=== PATIENT | male | born 1930 | race Caucasian/White ===

== ENCOUNTER 2018-09-05 16:30 | Observation (INO) | payer MEDICARE ==
[2018-09-05 17:15] LABS: ABSOLUTE NEUTROPHIL COUNT 12.77; HEMATOCRIT 43.2 % (42.0-52.0); HEMOGLOBIN 13.9 gm/dl (14.0-18.0); MEAN CELL VOLUME 93.7 fl (81-97); MEAN CORPUSCULAR HGB CONC 32.2 g/dl (32-36); MEAN PLATELET VOLUME 11.5 fl (7.4-10.4); PLATELET COUNT 190 K/uL (130-400); RED BLOOD COUNT 4.61 M/uL (4.40-5.70); RED CELL DISTRIBUTION WIDTH 13.1 % (11.5-14.5); URINE APPEARANCE CLEAR; URINE BILIRUBIN NEGATIVE (NEGATIVE); URINE BLOOD MODERATE (NEGATIVE); URINE COLOR YELLOW; URINE GLUCOSE (UA) NEGATIVE (NEGATIVE); URINE KETONE TRACE (NEGATIVE); URINE LEUKOCYTE ESTERASE SMALL (NEGATIVE); URINE NITRITE POSITIVE (NEGATIVE); WHITE BLOOD COUNT W/O DIFF 15.3 K/uL (4.2-12.2)
[2018-09-05 17:27] LABS: MEAN CORPUSCULAR HEMOGLOBIN 30.1 pg (27-33)
[2018-09-05 17:30] LABS: ALB/GLOB RATIO 1.6 (1.1-1.8); ALBUMIN 4.1 g/dL (4.0-5.0); ALKALINE PHOSPHATASE 109 U/L (40-129); ALT/SGPT 18 U/L (<41); AST/SGOT 19 U/L (10.0-50.0); BLOOD UREA NITROGEN 15 mg/dL (8-23); CREATININE 0.9 mg/dL (0.7-1.2); EST GLOMERULAR FILTRATION RATE > 60 mL/min; GLUCOSE,RANDOM 161 mg/dL (74-109); TOTAL PROTEIN 6.6 g/dL (6.6-8.7)
[2018-09-05 17:41] LABS: URINE BACTERIA 3+; URINE EPITHELIAL CELLS 0 - 2 (FEW); URINE RBC 0 - 2 (NONE SEEN); URINE WBC >50 (0-2/hpf)
[2018-09-05] MEDS ORDERED: CIPROFLOXACIN LACTATE/D5W 400 MG/200 ML BAG IVPB ONE (17:44)
--- NOTE | 2018-09-05 18:25 | Emergency Department Record ---
History of Present Illness - General Chief complaint: Weakness Stated complaint: CANT URINATE,LOSS OF BALANCE Time Seen by Provider: 09/05/18 16:51 Source: Patient Mode of Arrival: Wheelchair Limitations: No limitations - History of Present Illness Initial comments: pt has been exceedingly weak today and incontinent. he had the chills Complaint: Generalized weakness Onset/Timin -: Hour(s) Associated Symptoms: Denies other symptoms, Fever/chills - [place] Coma Scale Eye Response: (4) Open spontaneously Motor Response: (5) Localizes to pain Verbal Response: (5) Oriented [place] Total: 14 - Related Data Home Medications Medication Instructions Recorded Confirmed Last Taken Dabigatran Etexilate Mesylate 75 mg PO BID 09/05/18 09/05/18 09/05/18 [Pradaxa] Digoxin [Digox] 125 mcg PO DAILY 09/05/18 09/05/18 09/05/18 Oxybutynin Chloride [Ditropan] 5 mg PO QHS 09/05/18 09/05/18 09/05/18 Allergies Allergy/AdvReac Type Severity Reaction Status Date / Time No Known Drug Allergies Allergy Verified 09/05/18 16:46 Travel Screening - Travel/Exposure Within Last 30 Days Have you traveled within the last 30 days?: No - Travel/Exposure Within Last Year Have you traveled outside the [place] in the last year?: No - Additonal Travel Details Have you been exposed to anyone with a communicable illness?: No - Travel Symptoms Symptom Screening: None Review of Systems Reviewed: No additional complaints except as noted below Constitutional: Reports: As per HPI, Chills, Weakness. Denies: Fever, Malaise, Night sweats, Weight change Eyes: Reports: As per HPI. Denies: Eye discharge, Eye pain, Photophobia, Vision change ENT: Reports: As per HPI. Denies: Congestion, Dental pain, Ear pain, Epistaxis, Hearing loss, Throat pain Respiratory: Reports: As per HPI. Denies: Cough, Dyspnea, Hemoptysis, Stridor, Wheezes Cardiovascular: Reports: As per HPI. Denies: Arrhythmia, Chest pain, Dyspnea on exertion, Edema, Murmurs, Orthopnea, Palpitations, Paroxysmal nocturnal dyspnea, Rheumatic Fever, Syncope Endocrine: Reports: As per HPI. Denies: Fatigue, Heat or cold intolerance, Polydipsia, Polyuria Gastrointestinal: Reports: As per HPI. Denies: Abdominal pain, Constipation, Diarrhea, Hematemesis, Hematochezia, Melena, Nausea, Vomiting Genitourinary: Reports: As per HPI, Frequency, Incontinence. Denies: Dysuria, Hematuria, Retention, Testicular pain, Testicular mass, Urgency Musculoskeletal: Reports: As per HPI. Denies: Arthralgia, Back pain, Gout, Joint swelling, Myalgia, Neck pain Skin: Reports: As per HPI. Denies: Bruising, Change in color, Change in hair /nails, Lesions, Pruritus, Rash Neurological: Reports: As per HPI. Denies: Abnormal gait, Confusion, Headache, Numbness, Paresthesias, Seizure, Tingling, Tremors, Vertigo, Weakness Psychiatric: Reports: As per HPI. Denies: Anxiety, Auditory hallucinations, Depression, Homicidal thoughts, Suicidal thoughts, Visual hallucinations Hematological/Lymphatic: Reports: As per HPI. Denies: Anemia, Blood Clots, Easy bleeding, Easy bruising, Swollen glands Past Medical History - SOCIAL HISTORY Smoking Status: Never smoker Alcohol Use: None Drug Use: None - RESPIRATORY Hx Respiratory Disorders: No - CARDIOVASCULAR Hx Cardio Disorders: Yes Hx Irregular Heartbeat: Yes - NEURO Hx Neuro Disorders: No - GI Hx GI Disorders: No - Hx Genitourinary Disorders: Yes Hx Prostate Problems: Yes - ENDOCRINE Hx Endocrine Disorders: No - MUSCULOSKELETAL Hx Musculoskeletal Disorders: No - PSYCH Hx Psych Problems: No - HEMATOLOGY/ONCOLOGY Hx Hematology/Oncology Disorders: No Family Medical History Any Significant Family History?: No Physical Exam - General General Appearance: Alert, Oriented x3, Cooperative, Mild distress - Head Head exam: Normal inspection - Eye Eye exam: Normal appearance, PERRL, EOMI Pupils: Normal accommodation - ENT ENT exam: Normal exam, Mucous membranes moist, Normal external ear exam, Normal orophraynx Ear exam: Normal external inspection. negative: External canal tenderness Nasal Exam: Normal inspection. negative: Discharge, Sinus tenderness Mouth exam: Normal external inspection, Tongue normal Teeth exam: Normal inspection. negative: Dental caries Throat exam: Normal inspection. negative: Tonsillar erythema, Tonsillar exudate - Neck Neck exam: Normal inspection, Full ROM. negative: Tenderness - Respiratory Respiratory exam: Normal lung sounds bilaterally. negative: Respiratory distress - Cardiovascular Cardiovascular Exam: Regular rate, Normal rhythm, Normal heart sounds - GI/Abdominal GI/Abdominal exam: Soft, Normal bowel sounds. negative: Tenderness - Rectal Rectal exam: Deferred - exam: Deferred - Extremities Extremities exam: Normal inspection, Full ROM, Normal capillary refill. negative: Tenderness - Back Back exam: Reports: Normal inspection, Full ROM. Denies: Muscle spasm, Rash noted, Tenderness - Neurological Neurological exam: Alert, CN II-XII intact, Normal gait, Oriented X3 - Psychiatric Psychiatric exam: Normal affect, Normal mood - Skin Skin exam: Dry, Intact, Normal color, Warm Course Vital Signs 09/05/18 09/05/18 16:33 17:52 Temperature 98.9 F Pulse Rate 99 H Pulse Rate [ 100 H Pulse Ox Probe] Respiratory 18 16 Rate Blood Pressure 118/82 Blood Pressure 106/69 [Right Arm] Pulse Ox 95 95 Medical Decision Making - Lab Data Result diagrams: 09/05/18 16:37 09/05/18 16:37 Lab Results 09/05/18 09/05/18 09/05/18 Range/Units 16:37 16:37 16:37 WBC 15.3 H (4.2-12.2) K/uL RBC 4.61 (4.40-5.70) M/uL Hgb 13.9 L (14.0-18.0) gm/dl Hct 43.2 (42.0-52.0) % MCV 93.7 (81-97) fl MCH 30.1 (27-33) pg MCHC 32.2 (32-36) g/dl RDW 13.1 (11.5-14.5) % Plt Count 190 (130-400) K/uL MPV 11.5 H (7.4-10.4) fl Neutrophils % 83.0 H (47-80) % Band Neutrophils % 0.0 (0-5) % Eosinophils % Not Reportable Basophils % Not Reportable Absolute Neutrophils 12.77 Lymphocytes 6.0 L (16-45) % Monocytes 11.0 H (0-9) % Basophils 0.0 (0-6) % Eosinophil Count 0.0 (0-6) % Sodium (136-145) mmol/L Potassium (3.4-4.5) mmol/L Chloride (98-107) mmol/L Carbon Dioxide (22-29) mmol/L Anion Gap (7-16) BUN (8-23) mg/dL Creatinine (0.7-1.2) mg/dL Estimated GFR mL/min Random Glucose (74-109) mg/dL Calcium (8.8-10.2) mg/dL Total Bilirubin (0.2-1.0) mg/dL AST (10.0-50.0) U/L ALT (<41) U/L Alkaline Phosphatase (40-129) U/L Troponin T (0-0.010) ng/mL Total Protein (6.6-8.7) g/dL Albumin (4.0-5.0) g/dL Globulin (1.4-4.8) gm/dL Albumin/Globulin Ratio (1.1-1.8) Urine Color Yellow Urine Appearance Clear Urine pH 6.0 (5.0-8.0) Ur Specific [place] 1.025 (1.002-1.030) Urine Protein 100 mg/dl H (NEGATIVE) Urine Glucose (UA) Negative (NEGATIVE) Urine Ketones Trace H (NEGATIVE) Urine Blood Moderate (NEGATIVE) Urine Nitrite Positive H (NEGATIVE) Urine Bilirubin Negative (NEGATIVE) Urine Urobilinogen 1.0 (0.20 - 1.00) E.U./dL Ur Leukocyte Esterase Small H (NEGATIVE) Urine RBC 0 - 2 (NONE SEEN) Urine WBC >50 (0-2/hpf) Ur Epithelial Cells 0 - 2 (FEW) Urine Bacteria 3+ Digoxin 0.5 L (0.8-2.0) ng/mL 09/05/18 09/05/18 Range/Units 16:37 16:37 WBC (4.2-12.2) K/uL RBC (4.40-5.70) M/uL Hgb (14.0-18.0) gm/dl Hct (42.0-52.0) % MCV (81-97) fl MCH (27-33) pg MCHC (32-36) g/dl RDW (11.5-14.5) % Plt Count (130-400) K/uL MPV (7.4-10.4) fl Neutrophils % (47-80) % Band Neutrophils % (0-5) % Eosinophils % Basophils % Absolute Neutrophils Lymphocytes (16-45) % Monocytes (0-9) % Basophils (0-6) % Eosinophil Count (0-6) % Sodium 134 L (136-145) mmol/L Potassium 4.3 (3.4-4.5) mmol/L Chloride 99 (98-107) mmol/L Carbon Dioxide 22.0 (22-29) mmol/L Anion Gap 13.0 (7-16) BUN 15 (8-23) mg/dL Creatinine 0.9 (0.7-1.2) mg/dL Estimated GFR > 60 mL/min Random Glucose 161 H (74-109) mg/dL Calcium 8.7 L (8.8-10.2) mg/dL Total Bilirubin 1.00 (0.2-1.0) mg/dL AST 19 (10.0-50.0) U/L ALT 18 (<41) U/L Alkaline Phosphatase 109 (40-129) U/L Troponin T < 0.010 (0-0.010) ng/mL Total Protein 6.6 (6.6-8.7) g/dL Albumin 4.1 (4.0-5.0) g/dL Globulin 2.5 (1.4-4.8) gm/dL Albumin/Globulin Ratio 1.6 (1.1-1.8) Urine Color Urine Appearance Urine pH (5.0-8.0) Ur Specific [place] (1.002-1.030) Urine Protein (NEGATIVE) Urine Glucose (UA) (NEGATIVE) Urine Ketones (NEGATIVE) Urine Blood (NEGATIVE) Urine Nitrite (NEGATIVE) Urine Bilirubin (NEGATIVE) Urine Urobilinogen (0.20 - 1.00) E.U./dL Ur Leukocyte Esterase (NEGATIVE) Urine RBC (NONE SEEN) Urine WBC (0-2/hpf) Ur Epithelial Cells (FEW) Urine Bacteria Digoxin (0.8-2.0) ng/mL Disposition Disposition: Admit Clinical Impression: Pyelonephritis Atrial fibrillation Qualifiers: Atrial fibrillation type: chronic Qualified Code(s): I48.2 - Chronic atrial fibrillation Disposition: Still a Patient at [facility] Decision to Admit: Admit from ER Decision to Admit Date: 09/05/18 Decision to Admit Time: 18:17 Quality - Quality Measures Quality Measures: N/A - Blood Pressure Screening Does Patient Have Any of the Following: No Blood Pressure Classification: Pre-Hypertensive BP Reading Systolic Measurement: 118 Diastolic Measurement: 82 Screening for High Blood Pressure: < Pre-Hypertensive BP, F/U Documented > [G8950] Pre-Hypertensive Follow-up Interventions: Follow-up with rescreen every year.
[2018-09-05] MEDS ORDERED: ACETAMINOPHEN 500 MG TABLET PO PRN (18:42)
[2018-09-05] MEDS: CIPROFLOXACIN LACTATE/D5W 400 MG/200 ML BAG IVPB SCH (19:20)
[2018-09-05] MEDS ORDERED: DABIGATRAN 75 MG PO SCH (22:00)
[2018-09-05] MEDS ORDERED: OXYBUTYNIN CHLORIDE 5MG TABLET PO SCH (22:00)
[2018-09-05] MEDS: OXYBUTYNIN 5 MG PO SCH (22:25)
[2018-09-05] MEDS ORDERED: PATIENT OWN MED: PO SCH (22:30)
[2018-09-06] MEDS: CIPROFLOXACIN LACTATE/D5W 400 MG/200 ML BAG IVPB SCH ×2 (06:32→18:38)
[2018-09-06 06:59] LABS: HEMOGLOBIN 12.9 gm/dl (14.0-18.0); MEAN CELL VOLUME 94.1 fl (81-97); MEAN CORPUSCULAR HGB CONC 32.3 g/dl (32-36); MEAN PLATELET VOLUME 11.5 fl (7.4-10.4); PLATELET COUNT 152 K/uL (130-400); RED BLOOD COUNT 4.25 M/uL (4.40-5.70); WHITE BLOOD COUNT W/O DIFF 13.5 K/uL (4.2-12.2)
[2018-09-06 07:00] LABS: MEAN CORPUSCULAR HEMOGLOBIN 30.3 pg (27-33)
[2018-09-06 07:15] LABS: BLOOD UREA NITROGEN 15 mg/dL (8-23); EST GLOMERULAR FILTRATION RATE > 60 mL/min; GLUCOSE,RANDOM 132 mg/dL (74-109)
[2018-09-06 07:16] LABS: ABSOLUTE NEUTROPHIL COUNT 11.84
[2018-09-06] MEDS: DIGOXIN 125 MCG TABLET PO SCH ×2 (07:27→11:16)
[2018-09-06] MEDS: DABIGATRAN 150 MG PO SCH ×3 (07:27→21:15)
--- NOTE | 2018-09-06 11:27 | Rehab Evaluation ---
Patient Information - Patient Information Diagnosis: Weakness, pyelonephritis, a-fib Ordered Treatment: PT Evaluate and Treat Status: Initial Evaluation Surgery: No History: Detail (Pt states that he became very weak, had difficulty walking, and was incontinent day before yesterday, and slept all day yesterday, which is unusual for him. He presented to ED 09/05/18 and admitted to med surg for medical management.) Past Medical/Surgical Hx: PAST MEDICAL/SURGICAL HISTORY Past Surgical History prostate PMH - Respiratory Hx Respiratory Disorders No PMH - Cardiovascular Hx Cardiovascular Disorders Yes Hx Irregular Heartbeat Yes PMH - Neuro Hx Neurological Disorders No PMH - GI Hx Gastrointestinal Disorders No PMH - Hx Genitourinary Disorders Yes Hx Prostate Problems Yes PMH - Endocrine Hx Endocrine Disorders No PMH - Musculoskeletal Hx Musculoskeletal Disorders No PMH - Psych Hx Psychiatric Problems No PMH - Hematology/Oncology Hx Hematology/Oncology No Disorders Premorbid Status: Detail (Pt is usually independent with all self care and daily activities, including yardwork and gardening; he helps with dishes. He was ambulating without assistive device over community distances/surfaces, and has no history of falls.) Social History: Detail (Pt lives with his in [place], [place], but they are currently participating in a methodist camp at the [facility], staying in a camper. House is one story with basement, has four wide steps to enter, with handrail on both sides. They have a walk in shower without a seat, but they have grab bars, and a standard height toilet. Their camper has 5 steps to enter with a grab bar on the side of the camper, standard height toilet and stand-in shower. He uses a shelf on the wall to boost himself up onto the bed.) Precautions: [place], Fall - Time With Patient Total Time Spent With Patient (Min): 35 Treatment Procedures: Detail (PT Evaluation) Subjective Information - Subjective Information Per Patient (Pt denies pain or discomfort, denied dizziness upon arising or with activity.) Objective Data - Pain Pain Present: No - Mental Status Patient Orientation: Oriented x3 - Visual Perception Appears within normal limits for therapeutic activities - ROM Within normal limits (In lower extremities.) - Strength/Tone Within normal limits (Pt exhibits 4+/5 strength in major muscle groups of B LE's.) - Coordination Appears within normal limits for therapeutic activities - Bed Mobility Independent - Transfers Independent (Pt stood from bedside sitting w/o assist or unsteadiness, bent over to adjust pants w/o loss of balance.) - Balance Balance Sitting: Good Balance Standing: Good - Sensation Intact - Gait Detail (Pt ambulated from bedside to hallway, around to front lobby and radiology/lab, back to room (about 475 feet) w/o assistive device, w/close supervision, no loss of balance. Descended/ascended one flight of stairs w/supervision w/no loss of balance. Mildly short of breath after walking; independently transferred from bed to recliner, walking from bed to recliner.) Therapy Assessment - Therapy Assessment Detail (Pt is independent with all mobility, demonstrated no loss of balance with functional tasks. He does not require any physical therapy.) Problem List - Problem List Physical Therapy Problem List: Detail (None; pt is independent with all mobility, including gait and on stairs.) Goals - Goals Physical Therapy Goals: No goals formulated, no need for PT; will monitor for any further needs during stay. Prognosis - Prognosis Good Plan - Plan Physical Therapy Plan: Will monitor patient during remainder of hospital stay for any further PT needs, otherwise discharge from service.
[2018-09-06] MEDS ORDERED: ONDANSETRON 4 MG ODT TABLET SL PRN (11:30)
--- NOTE | 2018-09-06 11:57 | History & Physical ---
History of Present Illness - Date of Service Date of Service for History & Physical: 09/06/18 - History of Present Illness Admitting Diagnosis: complicated UTI History of Present Illness: 88 yo male presents for sudden onset of weakness and chills while [place] [employer] [place]. PMH BPH with partial prostatectomy, UTI 2 yrs ago, chronic afib, anticoagulation, 09/06/18 Pt presented by private car to [facility] ER for weakness, increased urinary incontinence, and chills. Temp 98.9, HR 99, BP 118/82, R 18, 95% RA WBC 15.3, Hgb 13.9, Hct 43.2, Plt 190 Na 134, L 4.3, BUN 15, Cr 0.9, GFR>60, glucose 161, LFT neg Trop <0.010 UA yellow, WBC >50 , +3 bacteria, nitrates, ketones, and protein Admit for complicated UTI (elevated WBC and symptoms) 09/06/18 Pt resting comfortably in bed, and daughter at bedside. Pt denies any abd or back pain. Still has urinary leakage but reports that since his partial prostatectomy but still worse than baseline. No more chills or weakness complaints. Pt in no distress, skin pwn, a&ox4. Blanching area of erythema noted to right buttock but no other injuries noted. Moving all extremities with no difficulties. Pt denies falls but reports he would have fallen yesterday but caught the door with his right shoulder. PT/OT eval pending. pt and daughter updated with POC to have pt stay another night but they are requesting labs be repeated this evening and D/C if more improvement. Will repeat labs, if no significant improvement, pt will remain another night. Continue cipro r/t coverage for prostatitis. BCx2 and urine culture pending PCP Ugo Verma Travel Screening - Travel/Exposure Within Last 30 Days Have you traveled within the last 30 days?: No - Travel/Exposure Within Last Year Have you traveled outside the [place] in the last year?: No - Additonal Travel Details Have you been exposed to anyone with a communicable illness?: No - Travel Symptoms Symptom Screening: None Review of Systems Constitutional: Reports: As per HPI, Chills, Weakness. Denies: Fever, Malaise, Night sweats, Weight change Eyes: Reports: As per HPI. Denies: Eye discharge, Eye pain, Photophobia, Vision change ENT: Reports: As per HPI. Denies: Congestion, Dental pain, Ear pain, Epistaxis, Hearing loss, Throat pain Respiratory: Reports: As per HPI. Denies: Cough, Dyspnea, Hemoptysis, Stridor, Wheezes Cardiovascular: Reports: As per HPI. Denies: Arrhythmia, Chest pain, Dyspnea on exertion, Edema, Murmurs, Orthopnea, Palpitations, Paroxysmal nocturnal dyspnea, Rheumatic Fever, Syncope Endocrine: Reports: As per HPI. Denies: Fatigue, Heat or cold intolerance, Polydipsia, Polyuria Gastrointestinal: Reports: As per HPI. Denies: Abdominal pain, Constipation, Diarrhea, Hematemesis, Hematochezia, Melena, Nausea, Vomiting Genitourinary: Reports: As per HPI, Frequency, Incontinence. Denies: Dysuria, Hematuria, Retention, Testicular pain, Testicular mass, Urgency Musculoskeletal: Reports: As per HPI. Denies: Arthralgia, Back pain, Gout, Joint swelling, Myalgia, Neck pain Skin: Reports: As per HPI. Denies: Bruising, Change in color, Change in hair/nails, Lesions, Pruritus, Rash Neurological: Reports: As per HPI. Denies: Abnormal gait, Confusion, Headache, Numbness, Paresthesias, Seizure, Tingling, Tremors, Vertigo, Weakness Psychiatric: Reports: As per HPI. Denies: Anxiety, Auditory hallucinations, Depression, Homicidal thoughts, Suicidal thoughts, Visual hallucinations Hematological/Lymphatic: Reports: As per HPI. Denies: Anemia, Blood Clots, Easy bleeding, Easy bruising, Swollen glands Past Medical History - SOCIAL HISTORY Smoking Status: Never smoker - RESPIRATORY Hx Respiratory Disorders: No - CARDIOVASCULAR Hx Cardio Disorders: Yes Hx Irregular Heartbeat: Yes - NEURO Hx Neuro Disorders: No - GI Hx GI Disorders: No - Hx Genitourinary Disorders: Yes Hx Prostate Problems: Yes - ENDOCRINE Hx Endocrine Disorders: No - MUSCULOSKELETAL Hx Musculoskeletal Disorders: No - PSYCH Hx Psych Problems: No - HEMATOLOGY/ONCOLOGY Hx Hematology/Oncology Disorders: No Family Medical History Any Significant Family History?: No Hx Cancer: Brother/Sister Hx HTN: Mother H&P Meds/Allergies - Allergies Allergies: Allergies Allergy/AdvReac Type Severity Reaction Status Date / Time No Known Drug Allergies Allergy Verified 09/05/18 16:46 - Home Medications Home Medications Medication Instructions Recorded Confirmed Last Taken Digoxin [Digox] 125 mcg PO DAILY 09/05/18 09/05/18 09/05/18 Oxybutynin Chloride [Ditropan] 5 mg PO QHS 09/05/18 09/05/18 09/05/18 Dabigatran Etexilate Mesylate 150 mg PO BID 09/06/18 09/06/18 Unknown [Pradaxa] - Active Medications Active Medications: Current Medications Acetaminophen (Tylenol 500mg Tab) 1,000 mg PO Q6H PRN PRN Reason: PAIN - MILD(1-4)/FEVER Digoxin (Lanoxin) 125 mcg PO DAILY [facility] Last Admin: 09/06/18 11:16 Dose: Not Given Documented by: Ciprofloxacin Lactate (Cipro) 400 mg in 200 mls @ 200 mls/hr IVPB Q12H [facility] Stop: 09/10/18 18:43 Last Infusion: 09/06/18 07:49 Dose: Infused Documented by: Patient Own Med: Oxybutynin 5 Mg Tablet 1 each PO QPM@2100 [facility] Last Admin: 09/05/18 22:25 Dose: 1 each Documented by: Patient Own Med: Dabigatran 150 Mg Capsule 1 each PO BID [facility] Last Admin: 09/06/18 11:17 Dose: Not Given Documented by: Physical Exam - Vital Signs Vital Signs: Vital Signs - Last 24 Hrs Temp Pulse Pulse Resp BP BP Pulse Ox 09/06/18 07:54 98.6 F 92 H 18 103/64 94 L 09/06/18 06:00 98.0 F 74 20 94/61 94 L 09/05/18 21:00 88 20 09/05/18 20:05 99.6 F 88 20 107/72 95 09/05/18 18:30 79 16 112/75 96 09/05/18 17:52 100 H 16 106/69 95 09/05/18 16:33 98.9 F 99 H 18 118/82 95 - General General Appearance: Alert, Oriented x3, Cooperative, No acute distress Limitations: No limitations - Head Head exam: Normal inspection - Eye Eye exam: Normal appearance, PERRL, EOMI Pupils: Normal accommodation - ENT ENT exam: Normal exam, Mucous membranes moist, Normal external ear exam, Normal orophraynx Ear exam: Normal external inspection. negative: External canal tenderness Nasal Exam: Normal inspection. negative: Discharge, Sinus tenderness Mouth exam: Normal external inspection, Tongue normal Teeth exam: Normal inspection. negative: Dental caries Throat exam: Normal inspection. negative: Tonsillar erythema, Tonsillar exudate - Neck Neck exam: Normal inspection, Full ROM. negative: Tenderness - Respiratory Respiratory exam: Normal lung sounds bilaterally. negative: Respiratory distress - Cardiovascular Cardiovascular Exam: Normal heart sounds, Irregular rhythm. negative: Regular rate, Normal rhythm Peripheral Pulses: 3+: Radial (R), Radial (L), Dorsalis Pedis (R), Dorsalis Pedis (L) - GI/Abdominal GI/Abdominal exam: Soft, Normal bowel sounds. negative: Tenderness - Rectal Rectal exam: Deferred - exam: Deferred - Extremities Extremities exam: Normal inspection, Full ROM, Normal capillary refill. negative: Tenderness - Back Back exam: Reports: Normal inspection, Full ROM. Denies: CVA tenderness (R), CVA tenderness (L), Muscle spasm, Rash noted, Tenderness - Neurological Neurological exam: Alert, CN II-XII intact, Normal gait, Oriented X3 - Psychiatric Psychiatric exam: Normal affect, Normal mood - Skin Skin exam: Dry, Intact, Normal color, Warm Results - Labs Result Diagrams: 09/06/18 06:15 09/06/18 06:15 Labs Last 24 Hours: Laboratory Results - last 24 hr 09/05/18 09/05/18 09/05/18 16:37 16:37 16:37 WBC 15.3 H RBC 4.61 Hgb 13.9 L Hct 43.2 MCV 93.7 MCH 30.1 MCHC 32.2 RDW 13.1 Plt Count 190 MPV 11.5 H Neutrophils % 83.0 H Band Neutrophils % 0.0 Eosinophils % Not Reportable Basophils % Not Reportable Absolute Neutrophils 12.77 Lymphocytes 6.0 L Monocytes 11.0 H Basophils 0.0 Eosinophil Count 0.0 Sodium Potassium Chloride Carbon Dioxide Anion Gap BUN Creatinine Estimated GFR Random Glucose Calcium Total Bilirubin AST ALT Alkaline Phosphatase Troponin T Total Protein Albumin Globulin Albumin/Globulin Ratio Urine Color Yellow Urine Appearance Clear Urine pH 6.0 Ur Specific Boron 1.025 Urine Protein 100 mg/dl H Urine Glucose (UA) Negative Urine Ketones Trace H Urine Blood Moderate Urine Nitrite Positive H Urine Bilirubin Negative Urine Urobilinogen 1.0 Ur Leukocyte Esterase Small H Urine RBC 0 - 2 Urine WBC >50 Ur Epithelial Cells 0 - 2 Urine Bacteria 3+ Digoxin 0.5 L 09/05/18 09/05/18 09/06/18 16:37 16:37 06:15 WBC 13.5 H RBC 4.25 L Hgb 12.9 L Hct 40.0 L MCV 94.1 MCH 30.3 MCHC 32.3 RDW 13.0 Plt Count 152 MPV 11.5 H Neutrophils % 88.0 H Band Neutrophils % Eosinophils % Not Reportable Basophils % Not Reportable Absolute Neutrophils 11.84 Lymphocytes 7.0 L Monocytes 5.0 Basophils Eosinophil Count Sodium 134 L Potassium 4.3 Chloride 99 Carbon Dioxide 22.0 Anion Gap 13.0 BUN 15 Creatinine 0.9 Estimated GFR > 60 Random Glucose 161 H Calcium 8.7 L Total Bilirubin 1.00 AST 19 ALT 18 Alkaline Phosphatase 109 Troponin T < 0.010 Total Protein 6.6 Albumin 4.1 Globulin 2.5 Albumin/Globulin Ratio 1.6 Urine Color Urine Appearance Urine pH Ur Specific Boron Urine Protein Urine Glucose (UA) Urine Ketones Urine Blood Urine Nitrite Urine Bilirubin Urine Urobilinogen Ur Leukocyte Esterase Urine RBC Urine WBC Ur Epithelial Cells Urine Bacteria Digoxin 09/06/18 06:15 WBC RBC Hgb Hct MCV MCH MCHC RDW Plt Count MPV Neutrophils % Band Neutrophils % Eosinophils % Basophils % Absolute Neutrophils Lymphocytes Monocytes Basophils Eosinophil Count Sodium 134 L Potassium 3.9 Chloride 98 Carbon Dioxide 25.0 Anion Gap 11.0 BUN 15 Creatinine 1.0 Estimated GFR > 60 Random Glucose 132 H Calcium 8.1 L Total Bilirubin AST ALT Alkaline Phosphatase Troponin T Total Protein Albumin Globulin Albumin/Globulin Ratio Urine Color Urine Appearance Urine pH Ur Specific Boron Urine Protein Urine Glucose (UA) Urine Ketones Urine Blood Urine Nitrite Urine Bilirubin Urine Urobilinogen Ur Leukocyte Esterase Urine RBC Urine WBC Ur Epithelial Cells Urine Bacteria Digoxin VTE H&P Assessment - Risk for VTE Risk for VTE: Yes Risk Level: High Risk Assessment Date: 09/06/18 Risk Assessment Time: 11:58 VTE Orders Placed or Will Be Placed: No VTE Reason for No Prophylaxis: Contraindicated (pt on pradaxa) Plan - Inpatient Certification Inpatient Certification: Admit to inpatient care: Based on my medical assessment, after consideration of patient's risk factors (age, co-morbidities and patient presenting symptoms and acuity), I expect that this patient will remain in the hospital greater than or equal to two midnights and that the services needed warrant inpatient care because: Patient Risk Factors: [] Estimated length of stay: [] The patient may reasonably be expected to be discharged or transferred to a hospital within 96 hours after admission to [facility]. Services needed: [] Post hospital care (if known): [] I certify that my determination is in accordance with my understanding of Medicare requirements for reasonable and necessary inpatient services. - Detailed Diagnosis and Plan (1) Complicated UTI (urinary tract infection) Current Visit: Yes Status: Acute Base Code: N39.0 - URINARY TRACT INFECTION, SITE NOT SPECIFIED Comment: 09/06/18 -WBC 15.3->13.5 -UA positive for WBC and nitrates -symptomatic with weakness, increased urinary incontience -no CVA tenderness -pt daughter and want to d/c tonight if labs continue to improve, will repeat CBC, BMP 1600. they have been updated that the BC and urine cultures have not resulted yet (2) Chronic a-fib Current Visit: Yes Status: Acute Base Code: I48.2 - CHRONIC ATRIAL FIBRILLATION Comment: 09/06/18 -continue Pradaxa 150mg BID and dig 125mg (3) Weakness Current Visit: Yes Status: Acute Base Code: R53.1 - WEAKNESS Comment: 09/06/18 -PT/OT eval completed, pt weakness has improved with fluids and ABX treatment -continue fall precautions
--- NOTE | 2018-09-06 12:57 | Rehab Evaluation ---
Patient Information - Patient Information Diagnosis: complicated UTI Ordered Treatment: OT Evaluate and Treat Status: Initial Evaluation Surgery: No History: Detail (Pt states that he became very weak, had difficulty walking, and was incontinent day before yesterday, and slept all day yesterday, which is unusual for him. He presented to ED 09/05/18 and admitted to med surg for medical management.) Past Medical/Surgical Hx: PAST MEDICAL/SURGICAL HISTORY Past Surgical History prostate PMH - Respiratory Hx Respiratory Disorders No PMH - Cardiovascular Hx Cardiovascular Disorders Yes Hx Irregular Heartbeat Yes PMH - Neuro Hx Neurological Disorders No PMH - GI Hx Gastrointestinal Disorders No PMH - Hx Genitourinary Disorders Yes Hx Prostate Problems Yes PMH - Endocrine Hx Endocrine Disorders No PMH - Musculoskeletal Hx Musculoskeletal Disorders No PMH - Psych Hx Psychiatric Problems No PMH - Hematology/Oncology Hx Hematology/Oncology No Disorders Premorbid Status: Detail (Pt is usually independent with all self care and daily activities, including yardwork and gardening; he helps with dishes and laundry. He was ambulating without assistive device over community distances/surfaces, and has no history of falls.) Social History: Detail (Pt lives with his in [place], [place], but they are currently participating in a mu-ism camp at the [facility], staying in a camper. House is one story with basement, has four wide steps to enter, with handrail on both sides. They have a walk in shower without a seat, but they have grab bars, and a standard height toilet. Their camper has 5 steps to enter with a grab bar on the side of the camper, standard height toilet and stand-in shower. He uses a shelf on the wall to boost himself up onto the bed. He ambulates without any assistive device. They have a 4 wheeled walker if needed.) Precautions: United, Fall - Time With Patient Total Time Spent With Patient (Min): 30 Treatment Procedures: Detail (OT eval low complexity) Subjective Information - Subjective Information Per Patient, Other ( and daughter present during evaluation.) Objective Data - Pain Pain Present: No - Mental Status Patient Orientation: Oriented x3 - Visual Perception Appears within normal limits for therapeutic activities - ROM Not within normal limits (Right shoulder AROM limited premorbidly, remaining milo UE AROM WNL.) - Strength/Tone Within normal limits (Milo UE strength 4+/5 throughout within AROM limitations.) - Coordination Appears within normal limits for therapeutic activities - Bed Mobility Independent (ind with supine to sit) - Transfers Independent (Ind with sit to stand) - Balance Balance Sitting: Good Balance Standing: Good - Sensation Intact - Gait Detail (Pt ambulating in hallway without assistive device Indly.) - ADL's/IADL's Detail (Pt able to demonstrate doffing of gown and slipper socks and donning shirt, pants, socks and shoes Indly.) Therapy Assessment - Therapy Assessment Detail (Pt is Ind with total body dressing and functional mobility. He presents with good endurance and he has no concerns about returning home or to campground.) Problem List - Problem List Physical Therapy Problem List: Detail (None; pt is independent with all mobility, including gait and on stairs.) Occupational Therapy Problem List: Detail (No current IP OT problems identified.) Goals - Goals Physical Therapy Goals: No goals formulated, no need for PT; will monitor for any further needs during stay. Occupational Therapy Goals: No current IP OT goals identified. Prognosis - Prognosis Good Plan - Plan Physical Therapy Plan: Will monitor patient during remainder of hospital stay for any further PT needs, otherwise discharge from service. Occupational Therapy Plan: No further IP OT recommended. Thank you for this referral.
[2018-09-06 16:46] LABS: HEMATOCRIT 39.2 % (42.0-52.0); HEMOGLOBIN 12.5 gm/dl (14.0-18.0); MEAN CORPUSCULAR HGB CONC 31.9 g/dl (32-36); PLATELET COUNT 147 K/uL (130-400); RED BLOOD COUNT 4.17 M/uL (4.40-5.70); RED CELL DISTRIBUTION WIDTH 13.2 % (11.5-14.5); WHITE BLOOD COUNT W/O DIFF 12.4 K/uL (4.2-12.2)
[2018-09-06 17:01] LABS: BLOOD UREA NITROGEN 19 mg/dL (8-23); EST GLOMERULAR FILTRATION RATE > 60 mL/min; GLUCOSE,RANDOM 143 mg/dL (74-109)
[2018-09-06 17:07] LABS: ABSOLUTE NEUTROPHIL COUNT 10.33; MEAN CORPUSCULAR HEMOGLOBIN 29.9 pg (27-33)
[2018-09-06] MEDS: OXYBUTYNIN 5 MG PO SCH (21:15)
[2018-09-07] MEDS: CIPROFLOXACIN LACTATE/D5W 400 MG/200 ML BAG IVPB SCH (06:15)
[2018-09-07 06:36] LABS: ABSOLUTE NEUTROPHIL COUNT 7.15; BASO % 0.1 % (0-6); EOS % 0.4 % (0-6); HEMATOCRIT 38.7 % (42.0-52.0); HEMOGLOBIN 12.6 gm/dl (14.0-18.0); LYMPH % 5.5 % (16-45); MEAN CELL VOLUME 92.4 fl (81-97); MEAN CORPUSCULAR HGB CONC 32.6 g/dl (32-36); MEAN PLATELET VOLUME 11.2 fl (7.4-10.4); MONO % 8.5 % (0-9); PLATELET COUNT 151 K/uL (130-400); RED BLOOD COUNT 4.19 M/uL (4.40-5.70); WHITE BLOOD COUNT W/O DIFF 8.4 K/uL (4.2-12.2)
[2018-09-07 06:51] LABS: BLOOD UREA NITROGEN 15 mg/dL (8-23); CREATININE 0.9 mg/dL (0.7-1.2); EST GLOMERULAR FILTRATION RATE > 60 mL/min; GLUCOSE,RANDOM 123 mg/dL (74-109)
[2018-09-07] MEDS: DIGOXIN 125 MCG TABLET PO SCH ×2 (09:55→11:24)
[2018-09-07] MEDS: DABIGATRAN 150 MG PO SCH ×2 (09:56→11:25)
--- NOTE | 2018-09-07 13:02 | Discharge Summary ---
Providers Discharge Summary Date: 09/07/18 Date of admission: 09/05/18 18:40 Expected Date of Discharge: 09/07/18 Attending physician: ADELE WARD Physical Exam - Vital Signs Vital Signs: Vital Signs - Last 24 Hrs Temp Pulse Resp BP Pulse Ox 09/07/18 11:00 98.4 F 75 16 96/65 94 L 09/07/18 09:00 90 16 09/07/18 07:20 98.8 F 101 H 16 102/68 93 L 09/07/18 05:19 97.9 F 96 H 18 111/75 96 09/06/18 21:23 98.9 F 91 H 18 109/76 97 09/06/18 21:00 91 H 18 09/06/18 18:00 100 H 18 125/89 95 - General General Appearance: Alert, Oriented x3, Cooperative, No acute distress Limitations: No limitations - Head Head exam: Normal inspection - Eye Eye exam: Normal appearance, PERRL, EOMI Pupils: Normal accommodation - ENT ENT exam: Normal exam, Mucous membranes moist, Normal external ear exam, Normal orophraynx Ear exam: Normal external inspection. negative: External canal tenderness Nasal Exam: Normal inspection. negative: Discharge, Sinus tenderness Mouth exam: Normal external inspection, Tongue normal Teeth exam: Normal inspection. negative: Dental caries Throat exam: Normal inspection. negative: Tonsillar erythema, Tonsillar exudate - Neck Neck exam: Normal inspection, Full ROM. negative: Tenderness - Respiratory Respiratory exam: Normal lung sounds bilaterally. negative: Respiratory distress - Cardiovascular Cardiovascular Exam: Normal heart sounds, Irregular rhythm. negative: Regular rate, Normal rhythm Peripheral Pulses: 3+: Radial (R), Radial (L), Dorsalis Pedis (R), Dorsalis Pedis (L) - GI/Abdominal GI/Abdominal exam: Soft, Normal bowel sounds. negative: Tenderness - Rectal Rectal exam: Deferred - exam: Deferred - Extremities Extremities exam: Normal inspection, Full ROM, Normal capillary refill. negative: Tenderness - Back Back exam: Reports: Normal inspection, Full ROM. Denies: CVA tenderness (R), CVA tenderness (L), Muscle spasm, Rash noted, Tenderness - Neurological Neurological exam: Alert, CN II-XII intact, Normal gait, Oriented X3 - Psychiatric Psychiatric exam: Normal affect, Normal mood - Skin Skin exam: Dry, Intact, Normal color, Warm Hospitalization - Hospitalization Admission Diagnosis: complicated UTI - Problem List/Discharge Diagnosis (1) Complicated UTI (urinary tract infection) Status: Acute Base Code: N39.0 - URINARY TRACT INFECTION, SITE NOT SPECIFIED Comment: 09/07/18 -WBC 15.3->13.5->12.4->8.4 -UA culture still pending but preliminary BC x2 no growth -pt denies any current symptoms -has PCP f/u in less than 10 days 09/06/18 -WBC 15.3->13.5 -UA positive for WBC and nitrates -symptomatic with weakness, increased urinary incontience -no CVA tenderness -pt daughter and want to d/c tonight if labs continue to improve, will repeat CBC, BMP 1600. they have been updated that the BC and urine cultures have not resulted yet (2) Chronic a-fib Status: Acute Base Code: I48.2 - CHRONIC ATRIAL FIBRILLATION Comment: 09/07/18 -continue Pradaxa 150mg BID and dig 125mg (3) Weakness Status: Acute Base Code: R53.1 - WEAKNESS Comment: 09/07/18 -PT/OT eval completed, pt weakness has improved with fluids and ABX treatment -continue fall precautions - Hospitalization Course Disposition: Home, Self-Care Hospital Course: 88 yo male presents for sudden onset of weakness and chills [place]. PMH BPH with partial prostatectomy, UTI 2 yrs ago, chronic afib, anticoagulation, 09/06/18 Pt presented by private car to [facility] ER for weakness, increased urinary incontinence, and chills. Temp 98.9, HR 99, BP 118/82, R 18, 95% RA WBC 15.3, Hgb 13.9, Hct 43.2, Plt 190 Na 134, L 4.3, BUN 15, Cr 0.9, GFR>60, glucose 161, LFT neg Trop <0.010 UA yellow, WBC >50 , +3 bacteria, nitrates, ketones, and protein Admit for complicated UTI (elevated WBC and symptoms) 09/06/18 Pt resting comfortably in bed, and daughter at bedside. Pt denies any abd or back pain. Still has urinary leakage but reports that since his partial prostatectomy but still worse than baseline. No more chills or weakness complaints. Pt in no distress, skin pwn, a&ox4. Blanching area of erythema noted to right buttock but no other injuries noted. Moving all extremities with no difficulties. Pt denies falls but reports he would have fallen yesterday but caught the door with his right shoulder. PT/OT eval pending. pt and daughter updated with POC to have pt stay another night but they are requesting labs be repeated this evening and D/C if more improvement. Will repeat labs, if no significant improvement, pt will remain another night. Continue cipro r/t coverage for prostatitis. BCx2 and urine culture pending PCP Ugo Verma Procedures: Cardiology Procedures 09/05/18 16:49 EKG NOW Abnormal Labs: Abnormal Lab Results 09/05/18 09/05/18 09/05/18 Range/Units 16:37 16:37 16:37 WBC 15.3 H (4.2-12.2) K/uL RBC (4.40-5.70) M/uL Hgb 13.9 L (14.0-18.0) gm/dl Hct (42.0-52.0) % MCHC (32-36) g/dl MPV 11.5 H (7.4-10.4) fl Neutrophils % 83.0 H (47-80) % Lymphocytes % (16-45) % Lymphocytes 6.0 L (16-45) % Monocytes 11.0 H (0-9) % Sodium (136-145) mmol/L Chloride (98-107) mmol/L Random Glucose (74-109) mg/dL Calcium (8.8-10.2) mg/dL Urine Protein 100 mg/dl H (NEGATIVE) Urine Ketones Trace H (NEGATIVE) Urine Nitrite Positive H (NEGATIVE) Ur Leukocyte Esterase Small H (NEGATIVE) Digoxin 0.5 L (0.8-2.0) ng/mL 09/05/18 09/06/18 09/06/18 Range/Units 16:37 06:15 06:15 WBC 13.5 H (4.2-12.2) K/uL RBC 4.25 L (4.40-5.70) M/uL Hgb 12.9 L (14.0-18.0) gm/dl Hct 40.0 L (42.0-52.0) % MCHC (32-36) g/dl MPV 11.5 H (7.4-10.4) fl Neutrophils % 88.0 H (47-80) % Lymphocytes % (16-45) % Lymphocytes 7.0 L (16-45) % Monocytes (0-9) % Sodium 134 L 134 L (136-145) mmol/L Chloride (98-107) mmol/L Random Glucose 161 H 132 H (74-109) mg/dL Calcium 8.7 L 8.1 L (8.8-10.2) mg/dL Urine Protein (NEGATIVE) Urine Ketones (NEGATIVE) Urine Nitrite (NEGATIVE) Ur Leukocyte Esterase (NEGATIVE) Digoxin (0.8-2.0) ng/mL 09/06/18 09/06/18 09/07/18 Range/Units 16:32 16:32 06:18 WBC 12.4 H (4.2-12.2) K/uL RBC 4.17 L 4.19 L (4.40-5.70) M/uL Hgb 12.5 L 12.6 L (14.0-18.0) gm/dl Hct 39.2 L 38.7 L (42.0-52.0) % MCHC 31.9 L (32-36) g/dl MPV 11.0 H 11.2 H (7.4-10.4) fl Neutrophils % 83.0 H 86.0 H (47-80) % Lymphocytes % 5.5 L (16-45) % Lymphocytes 9.0 L 4.0 L (16-45) % Monocytes 10.0 H (0-9) % Sodium 131 L (136-145) mmol/L Chloride 96 L (98-107) mmol/L Random Glucose 143 H (74-109) mg/dL Calcium 8.3 L (8.8-10.2) mg/dL Urine Protein (NEGATIVE) Urine Ketones (NEGATIVE) Urine Nitrite (NEGATIVE) Ur Leukocyte Esterase (NEGATIVE) Digoxin (0.8-2.0) ng/mL 09/07/18 Range/Units 06:18 WBC (4.2-12.2) K/uL RBC (4.40-5.70) M/uL Hgb (14.0-18.0) gm/dl Hct (42.0-52.0) % MCHC (32-36) g/dl MPV (7.4-10.4) fl Neutrophils % (47-80) % Lymphocytes % (16-45) % Lymphocytes (16-45) % Monocytes (0-9) % Sodium 133 L (136-145) mmol/L Chloride (98-107) mmol/L Random Glucose 123 H (74-109) mg/dL Calcium 8.2 L (8.8-10.2) mg/dL Urine Protein (NEGATIVE) Urine Ketones (NEGATIVE) Urine Nitrite (NEGATIVE) Ur Leukocyte Esterase (NEGATIVE) Digoxin (0.8-2.0) ng/mL Condition at Discharge: (2) Stable Discharge Medications - Discharge Medications Prescriptions: Ciprofloxacin HCl [Cipro] 500 mg PO Q12HR 12 Days #24 tablet Ondansetron [Zofran Odt] 4 mg SL Q8H PRN #10 tab.rapdis PRN Reason: Nausea/Vomiting Home Medications: Ambulatory Orders Digoxin [Digox] 125 mcg PO DAILY 09/05/18 [Last Taken 09/05/18] Oxybutynin Chloride [Ditropan] 5 mg PO QHS 09/05/18 [Last Taken 09/05/18] Dabigatran Etexilate Mesylate [Pradaxa] 150 mg PO BID 09/06/18 [Last Taken Unknown] Acetaminophen [Tylenol 500Mg Tab] 1,000 mg PO Q6H PRN tablet 09/07/18 [Last Taken Unknown] Ciprofloxacin HCl [Cipro] 500 mg PO Q12HR 12 Days #24 tablet 09/07/18 [Last Taken Unknown] Ondansetron [Zofran Odt] 4 mg SL Q8H PRN #10 tab.rapdis 09/07/18 [Last Taken Unknown] Discharge Plan - Discharge Instructions Instructions: Atrial Flutter (DC), Urinary Traction Infection in Older Adults (DC) Additional Instructions: Appointment with Dr. Verma at [facility] September 13 at 2:20pm. Please arrive at 2:00 and bring your hospital discharge paperwork with you to appointment. Quality Measures - Quality Measures Quality Measures: Atrial Fibrillation & Atrial Flutter: Chronic Anticoagulation Therapy, Advance Directives, Documentation of Current Medications in Medical Record, Elder Maltreatment Screen and Follow-Up Plan, Screening for High Blood Pressure and F/U Documented - Current Medications Quality Measure: Measure #130: Documentation of Current Medications Documentation of Current Medications: <Current Medications Documented/Reviewed> [G2264] - Blood Pressure Screening Quality Measure: Screening for High Blood Pressure and Follow-Up Documented Does Patient Have Any of the Following: Active Dx of HTN Blood Pressure Classification: Normal BP Reading Systolic Measurement: 112 Diastolic Measurement: 75 Screening for High Blood Pressure: Patient Exclusion, Hx of HTN [G9204] - Atrial Fibrillation and Atrial Flutter Quality Measure: Atrial Fibrillation & Atrial Flutter: Chronic Anticoagulation Therapy Does Patient Have Any of the Following: No CHADS2 Risk Stratification: Age 75 or Greater Risk Stratification Summary: No risk factors or only one moderate risk factor exists. [G8970] Anticoagulation Therapy: <Oral anticoagulant Prescribed> [G8967] - Advance Directives Quality Measure: Measure #47: Care Plan Advance Directives Established: Yes Advance Directives Information Provided To Patient: No Advance Directives on File: No Living Will: Yes Power of Loss Prevention Coordinator: Yes Power of Loss Prevention Coordinator Name: Hilario Maldonado Advance Care Planning: <Care Plan/Decision Maker Documented; Discussed & Documented> [1723F] - Elder Abuse Suspicion Index Screening: Elder Abuse Suspicion Index Screening Rely on people for bathing, dressing, shopping, banking, etc: No Prevented from getting food, clothes, medication, etc: No Made to feel shamed or threatened by someone: No Forced to sign papers or use money against will: No Feel afraid, touched in ways not wanted or hurt physically: No Poor eye contact, withdrawn, malnourished, cuts or bruises: No Screening Result: Negative result EASI Reference Information: Anu W[place], Rocio C, Elen D, Bharat Candelario.Development and validation of a tool to assist physicians identification of elder abuse: The Elder Abuse Suspicion Index (EASI ). Journal of Elder Abuse and Neglect, 2008; 20 (3): 276-300. - Elder Maltreatment Screen Quality Measures: Elder Maltreatment Screen and Follow-Up Plan Elder Maltreatment Screen: <Negative, No Follow-Up Plan Required> [G8734]
== END 2018-09-07 13:28 | disposition home or self-care (01) ==
LOC: ER 16:30 → MEDSURG 18:40 → INTOOBSV 18:40
PROVIDERS: ADMIT Internal Medicine; ATTEND Internal Medicine
DX: N12 Tubulo-interstitial nephritis, not specified as acute or chronic (principal); I48.2 Chronic atrial fibrillation; Z79.01 Long term (current) use of anticoagulants; N39.0 Urinary tract infection, site not specified; R53.1 Weakness; R32 Unspecified urinary incontinence; N40.0 Benign prostatic hyperplasia without lower urinary tract symptoms
CPT/HCPCS: 80048 ×2; 80053; 81001; 83036; 84484; 80162; 85027 ×3; 93005; 93010; G0378 ×3; J0744 ×3; 96365; 99217; 99220; 99285